=== PATIENT | male | born 1960 | race Hispanic/Latino ===

== ENCOUNTER 2024-09-23 08:06 | Emergency (ER) | payer OTHER, BC ==
[~2024-09-23] VITALS: Ht 171.4 cm; Wt 89.8 kg
[~2024-09-23 08:06] MED LIST: LORTAB 7.5 PO; NO; TYLENOL325 MG OR
[2024-09-23] MEDS ORDERED: LIDOcaine HCl 1% (Local Anesth.) 20 ML VIAL STI STA (08:17)
[2024-09-23] MEDS ORDERED: POVIDONE IODINE 0.5 OZ/BTL TOP ONE (08:20)
[2024-09-23] MEDS ORDERED: CEPHALEXIN500 M1 PO (08:22)
[2024-09-23] MEDS ORDERED: BACTRIM DS1 TAB PO (08:22)
== END 2024-09-23 09:00 | disposition home or self-care (01) | DRG 603 ==
LOC: ED 08:06
PROC: 0H9KXZZ Drainage of Right Lower Leg Skin, External Approach (ICD-10-PCS; principal; 2024-09-23)
DX: L02.415 Cutaneous abscess of right lower limb (principal)

== ENCOUNTER 2024-09-24 07:45 | Emergency (ER) | payer OTHER, BC ==
[~2024-09-24] VITALS: Ht 171.4 cm; Wt 82.0 kg
[~2024-09-24 07:45] MED LIST changes: +BACTRIM DS1 TAB PO; +CEPHALEXIN500 M1 PO
[2024-09-24 07:51] VITALS: BP 168/97
[2024-09-24 07:56] VITALS: BP 144/75
[2024-09-24 08:00] VITALS: BP 132/70
[2024-09-24] MEDS ORDERED: Diph, Acellular Pertussis, Tet 0.5 ML/VIAL (Tdap) SDV IM ONE (08:10)
[2024-09-24 08:15] VITALS: BP 132/70
== END 2024-09-24 08:27 | disposition home or self-care (01) | DRG 951 ==
LOC: ED 07:45
DX: Z48.01 Encounter for change or removal of surgical wound dressing (principal)

== ENCOUNTER 2024-09-25 08:00 | Emergency (ER) | payer OTHER, BC ==
[~2024-09-25] VITALS: Ht 171.4 cm; Wt 88.4 kg
[2024-09-25 08:06] VITALS: BP 172/93
[2024-09-25] MEDS ORDERED: LIDOcaine HCl 1% (Local Anesth.) 20 ML VIAL STI STA (08:19)
[2024-09-25] MEDS ORDERED: POVIDONE IODINE 0.5 OZ/BTL TOP ONE (08:20)
[2024-09-25 08:29] VITALS: BP 179/96
[2024-09-25 08:46] VITALS: BP 136/78
[2024-09-25 08:51] VITALS: BP 136/78
== END 2024-09-25 09:07 | disposition home or self-care (01) | DRG 603 ==
LOC: ED 08:00
PROC: 0H9KXZZ Drainage of Right Lower Leg Skin, External Approach (ICD-10-PCS; principal; 2024-09-25)
DX: L02.415 Cutaneous abscess of right lower limb (principal)

== ENCOUNTER 2024-09-26 07:59 | Emergency (ER) | payer OTHER, BC ==
[~2024-09-26] VITALS: Ht 171.4 cm; Wt 89.0 kg
[2024-09-26 08:11] VITALS: BP 188/94
[2024-09-26 08:31] VITALS: BP 150/74
[2024-09-26 08:54] VITALS: BP 150/87
[2024-09-26 08:55] VITALS: BP 150/87
== END 2024-09-26 08:58 | disposition home or self-care (01) | DRG 951 ==
LOC: ED 07:59
DX: Z48.01 Encounter for change or removal of surgical wound dressing (principal)

== ENCOUNTER 2024-09-27 09:10 | Emergency (ER) | payer OTHER, BC ==
[~2024-09-27] VITALS: Ht 171.4 cm; Wt 83.2 kg
[2024-09-27 09:26] VITALS: BP 157/99
[2024-09-27 09:30] VITALS: BP 147/79
[2024-09-27 09:46] VITALS: BP 166/104
[2024-09-27 09:55] VITALS: BP 159/89
[2024-09-27 10:00] VITALS: BP 159/89
== END 2024-09-27 10:12 | disposition left against medical advice (07) | DRG 603 ==
LOC: ED 09:10
DX: L02.415 Cutaneous abscess of right lower limb (principal); Z53.29 Procedure and treatment not carried out because of patient's decision for other reasons